=== PATIENT | female | born 1950 | race Hispanic/Latino ===

== ENCOUNTER 2018-03-01 09:00 | Day surgery (SDC) | payer OTHER ==
[~2018-03-01] VITALS: Ht 154.9 cm; Wt 72.4 kg
[~2018-03-01 09:00] MED LIST: AMLO5TAB2 PO; ERGO500014 PO; FLUTICASONE NASAL; LEVO5TAB13 PO; LISI-613 PO; OMEP20CA10 PO; SODIUM CHLORIDE 0.9% 1000ML 1,000 ML IV ONE; SULFAD500 PO
[2018-03-01 09:21] VITALS: BP 168/89
[2018-03-01] MEDS ORDERED: PROPOFOL 10 MG/ML 20ML VIAL IV ONE ×2 (09:55→10:12)
[2018-03-01 10:32] VITALS: BP 101/68
== END 2018-03-01 11:07 | disposition home or self-care (01) ==
LOC: DAH 09:00 → ENDO 09:00
PROVIDERS: ATTEND Internal Medicine Gastroenterology
DX: D12.0 Benign neoplasm of cecum (principal); D12.2 Benign neoplasm of ascending colon; D12.3 Benign neoplasm of transverse colon; K57.30 Diverticulosis of large intestine without perforation or abscess without bleeding; K51.50 Left sided colitis without complications; K21.9 Gastro-esophageal reflux disease without esophagitis; I10 Essential (primary) hypertension; F41.9 Anxiety disorder, unspecified; M81.0 Age-related osteoporosis without current pathological fracture; Z85.42 Personal history of malignant neoplasm of other parts of uterus; Z88.0 Allergy status to penicillin; Z88.6 Allergy status to analgesic agent
CPT/HCPCS: 45380; 88305; 93005; A4606; J2704 ×2; J7030

== ENCOUNTER 2022-10-30 00:15 | Emergency (ER) | payer OTHER ==
[~2022-10-30] VITALS: Ht 152.4 cm; Wt 82.1 kg
[~2022-10-30 00:15] MED LIST changes: +AMLO-257 PO; -AMLO5TAB2 PO; -LISI-613 PO; +LISI20TA24 PO; -OMEP20CA10 PO; +OMEP20CA12 PO; -SODIUM CHLORIDE 0.9% 1000ML 1,000 ML IV ONE; +SULF500T75 PO; -SULFAD500 PO
[2022-10-30 00:16] VITALS: BP 149/71
[2022-10-30] MEDS ORDERED: CYCLOBENZAPRINE HCL 10 MG TABLET PO ONE (01:30)
[2022-10-30] MEDS ORDERED: HYDROMORPHONE 0.5 MG SYG (0.5MG/0.5ML) IVP ONE (01:30)
[2022-10-30] MEDS ORDERED: GABAPENTIN 300 MG CAPSULE PO SCH (01:30)
[2022-10-30] MEDS ORDERED: CYCL-309 PO (02:24)
[2022-10-30] MEDS ORDERED: IBUP-1493 PO (02:24)
[2022-10-30] MEDS ORDERED: GABA300C PO (02:24)
== END 2022-10-30 03:00 | disposition home or self-care (01) ==
LOC: EDH 00:15
DX: M54.50 Low back pain, unspecified (principal); I10 Essential (primary) hypertension; K50.90 Crohn's disease, unspecified, without complications; Z91.040 Latex allergy status; Z88.0 Allergy status to penicillin; Z88.5 Allergy status to narcotic agent; Z79.899 Other long term (current) drug therapy; Z90.710 Acquired absence of both cervix and uterus
CPT/HCPCS: 99284; 96374; 72110; 72202; J1170